=== PATIENT | female | born 1940 | race Caucasian/White ===

== ENCOUNTER 2024-04-29 08:10 | Day surgery (SDC) | payer MEDICARE, SELFPAY ==
--- NOTE | 2024-04-13 09:50 | HPS.HSE ---
Family Physician
-
Family Physician: NO INTERVIEW UNKNOWN
Chief Complaint
-
Paroxysmal atrial fibrillation.
History of Present Illness
The patient is an 83 year old female presenting today for paroxysmal atrial fibrillation. The patient reports daily palpitations secondary to this diagnosis. Her palpitations can last up to 2-3 hours a day. She previously underwent
pulmonary vein isolation in January 2018 and September 2019 for her arrhythmia. Her most recent event monitor demonstrated a 6% atrial fibrillation burden. She is on current pharmacological therapy with Metoprolol Succinate. She reports compliance with
Eliquis for oral anticoagulation. She notes that her palpitations greatly interfere with her activities of daily living and are overall impacting her quality of life. She is interested in pursuing with repeat pulmonary vein isolation for further
arrhythmia management. She denies any current complaints such as chest pain, shortness of breath, nausea, vomiting, diarrhea, lightheadedness, dizziness, cough, sore throat, or fever.
Medical History
Past Medical History
Past Medical History: Reports Other
Additional Past Medical History:
1. Paroxysmal atrial fibrillation, status post pulmonary vein isolation 01/2018 and 09/2019; pharmacological therapy with Metoprolol Succinate, oral anticoagulation with Eliquis.
2. Hypertension.
3. Hyperlipidemia.
4. Atrial tachycardia.
5. First degree AV block.
6. Mild mitral regurgitation.
7. Mild tricuspid regurgitation.
8. GERD.
9. Hiatal hernia.
10. Gastric and colon polyps.
11. Diverticulosis.
12. Arthritis.
13. Left thyroid nodule on pre-operative chest CT.
14. Squamous cell carcinoma, forehead, status post Mohs.
15. Chronic anemia.
16. Shingles.
17. Hypokalemia, on oral supplementation.
18. Mild hyponatremia.
19. Hearing impairment bilaterally.
Past Surgical History: Reports Other
Additional Past Surgical History:
1. Pulmonary vein isolation x2.
2. Bilateral carpal tunnel release.
3. Bilateral trigger thumb release.
4. Appendectomy.
5. Breast lipoma excision.
6. Bilateral foot surgery with hardware.
7. Tonsillectomy.
8. Thyroid biopsy.
9. Mohs.
10. Colonoscopy x4.
11. Endoscopy x3.
Social History
Tobacco: Non-smoker
Alcohol: Other (She reports to consuming a 'couple' ounces of wine 1-2 times per week. )
Personal:
Living: Other (She lives with her in a 2 story home. She recently found out her has Alzheimer's disease (due to initial aphasia). )
Family History
Family History: Not pertinent
Allergies / Home Medications
Allergy/Medication List:
Home medications:
1. Eliquis 2.5 mg p.o. twice a day.
2. Chlorthalidone 25 mg p.o. daily.
3. Cholecalciferol 50 mcg p.o. daily.
4. Nexium 40 mg p.o. at bedtime.
5. Losartan 100 mg p.o. daily.
6. Metoprolol Succinate 50 mg p.o. twice a day.
7. Potassium chloride 20 meq p.o. daily.
8. Rosuvastatin 10 mg p.o. daily.
Allergies: Epinephrine. Opioids. Adhesive tape.
Review of Systems
-
A 12 point ROS was completed and negative except as noted: Yes
Physical Exam
Vital Signs
Blood pressure 165/59. Heart rate 64. Respirations 18. Pulse ox 98% on room air.
Height 5 feet, 4 inches. Weight 60.6 kg. BMI 22.9.
Physical Exam
General: Well Developed, Well Nourished and No Apparent Distress
HEENT: NormoCephalic, Moist mucous membranes, Atraumatic and PERRLA
Respiratory: Clear
Cardiac: Regular Rhythm
GI: Soft, Non Tender and Non Distended
Musculoskeletal: Normal Gait & Station
Skin: Warm and Dry
Neuro: AO x 3 and Nonfocal/grossly intact
Laboratory Results
-
DIAGNOSTIC STUDIES as of 04/13/2024: White blood cell count 6.5. Hemoglobin 11.4. Platelet count 193,000. PT 14.4. INR 1.07. Sodium 134. Potassium 4.1. BUN 17. Creatinine 0.7. Glucose 83. Calcium 10.1. Magnesium 1.9. AST 34. ALT 26. Albumin 4.7.
Type and screen O positive.
EKG 04/13/2024: Sinus rhythm with Wenkebach. Left axis deviation.
Chest CT 04/13/2024: Short segment common vestibule for the left superior and inferior pulmonary veins, fairly commonly seen and considered normal variant. No evidence for left atrial thrombus. 1.0 cm hypoattenuating left thyroid lobe nodule, not
definitely seen previously. Consider workup with dedicated thyroid ultrasound if not previously performed.
Echocardiogram 03/19/2024: Ejection fraction is 55 to 60% with grade 2 diastolic dysfunction. Mild mitral regurgitation. Mild tricuspid regurgitation with mildly elevated right ventricular systolic pressure, estimated 41 mmHg.
Impression/Plan
-
IMPRESSION/PLAN:
1. Paroxysmal atrial fibrillation: The patient is in need of pulmonary vein isolation with Dr. Sathish Hollins on 04/29/2024. The benefits and risks of the procedure have been explained to the patient. The patient understands these risks and wishes to
proceed. She will not be required to undergo a pre-preprocedural transesophageal echocardiogram as she does report compliance with her home oral anticoagulation. She is aware to continue her Eliquis uninterrupted prior to her procedure. She will
take no medications the morning of her ablation.
2. Left thyroid nodule on pre-operative chest CT: The patient's thyroid nodule was discussed through phone call 04/15/2024. Per the patient, this finding is not new and she has had it biopsied previously. Fortunately, her previous biopsy was
negative for malignancy.
[2024-04-13 11:07] VITALS: BMI 22.9
[2024-04-13 11:37] LABS: % Basophils 0.8 % (0-2); % Eosinophils 1.4 % (0-6); % Immature Granulocytes 0.2 % (0-0.5); % Lymphocytes 21.4 % (20.5-51.1); % Monocytes 10.5 % (1.7-9.3); % Neutrophils 65.7 % (42.2-75.2); Absolute Basophils 0.1 10^3/uL (0-0.2); Absolute Eosinophils 0.1 10^3/uL (0-0.7); Absolute Lymphocytes 1.4 10^3/uL (1.2-3.4); Absolute Monocytes 0.7 10^3/uL (0.1-0.6); Absolute Neutrophils 4.3 10^3/uL (1.4-6.5); Hematocrit 33.9 % (37.0-47.0); Hemoglobin 11.4 g/dL (12.0-16.0); Mean Corp Hgb Conc. 33.6 g/dL (33.0-37.0); Mean Corpuscular Hgb 29.5 pg (27.0-31.0); Mean Corpuscular Volume 87.6 fL (81.0-99.0); Mean Platelet Volume 10.4 fL (7.4-10.4); Nucleated Red Blood Cells % 0 %; Platelet Count 193 10^3/uL (130-400); Red Blood Cell Count 3.87 10^6/uL (4.20-5.40); Red Cell Dist. Width 12.8 % (11.5-14.5); White Blood Cell Count 6.5 10^3/uL (4.8-10.8)
[2024-04-13 11:48] LABS: INR 1.07; PT 14.4 Sec (11.4-14.6)
[2024-04-13 11:51] LABS: ALT (SGPT) 26 U/L (0-35); AST (SGOT) 34 U/L (14-36); Albumin 4.7 g/dl (3.5-5.0); Alkaline Phosphatase 54 U/L (38-126); Blood Urea Nitrogen 17 mg/dl (7-17); Calcium 10.1 mg/dl (8.4-10.2); Carbon Dioxide 35 mmol/L (22-30); Chloride 93 mmol/L (98-107); Estimated Creatinine Clearance 54 ml/min; Glucose 83 mg/dl (70-99); Magnesium 1.9 mg/dl (1.6-2.3); Potassium 4.1 mmol/L (3.5-5.1); Sodium 134 mmol/L (135-145); Total Bilirubin 0.6 mg/dl (0.2-1.3); Total Protein 7.1 g/dl (6.3-8.2); eGFR > 60.00
[2024-04-29] VITALS (12 sets, daily range): BP systolic 106–168; BP diastolic 55–98; BMI 22.3
[2024-04-29 11:15] LABS: ACT-LR - POC 282 Seconds (116-155)
[2024-04-29 11:36] LABS: ACT-LR - POC 339 Seconds (116-155)
--- NOTE | 2024-04-29 11:58 | ITS.CL.ABL ---
Store Director - Ablation
Ablation
Procedure Report:
ELECTROPHYSIOLOGY ABLATION STUDY
DATE:: April 29, 2024�����������������������������REFERRING: Dr. Russ henderson
INDICATION: Paroxysmal supraventricular tachycardia in the form of atrial fibrillation.��Prior pulmonary vein isolation procedure in 2018 with me at [facility] with a 28 mm cryoballoon status post redo ablation with Dr. Ness at [facility] in
2020 with posterior wall isolation and targeting of coronary sinus atrial tachycardia. Presents with recurrent atrial fibrillation which is paroxysmal and low burden
HISTORY: See H and P.��As above
ANTIARRHYTHMIC DRUG: Discussed class III antiarrhythmic and the patient opted for repeat procedure
PRE-PROCEDURE ELLIOT: No atrial thrombus on intracardiac ultrasound
PRESENTING RHYTHM: As above sinus bradycardia with APD's
'TIME-OUT':��called and confirmed.
SEDATION/ANESTHESIA:��provided via the anesthesia department using general anesthesia (LMA).
INTRAVENOUS/ARTERIAL ACCESS:
Right femoral venous - 8Fr
Left femoral venous - 8 Fr, 6 Fr
Ultrasound guidance for bilateral femoral vein access was utilized by me to obtain access with demonstration of normal anatomy
CHADS-VASC Score:
HAS-Bled Score
PROCEDURE:
1.��A decapolar CS catheter was placed within the CS for mapping and pacing.��This was also used as the reference catheter for the 3-D map.
2. The intracardiac ultrasound catheter was positioned in the RA to identify the FO for targeting of transseptal puncture, assist��in identification of the pulmonary vein ostia, monitoring pre and post ablation pulmonary vein flow velocities,
monitoring for 'bubble' formation during RF application as a sign of thermal injury,��and to monitor for pericardial effusion during mapping and ablation procedure.���Left atrial size, LV ejection fraction, and pulmonary vein flows were monitored
pre and post ablation procedure. The other valves were inspected and found to be free of significant regurgitation or stenosis. There was a small posterior effusion behind the left atrium and left ventricle at baseline which was unchanged post
procedure. Serial imaging was performed to make sure this was stable.
3.��Transseptal puncture was extremely difficult and limited by 2 prior procedures and extensive calcification of the interatrial septum. We first elected a low�mid and posterior stick which could accommodate the Brockenbrough needle into the left
atrium and the dilator but the Agilis sheath could not pass into the left atrium despite utilizing this equipment plus a needle wire and ProTrac wire. A second attempt was made at a thin portion of the fossa just below the anterior limbus higher
and more anterior utilizing the Brockenbrough needle and electrocautery was utilized to cross the septum and to allow the sheath to anterior the left atrium over the dilator. A ProTrac wire was also utilized to aid in crossing into the left atrium.
Half of the calculated heparin bolus was administered prior to the first transeptal puncture.��Transseptal puncture was performed to diagnose RA and LA pressure so that safety of LA mapping and ablation could be further assessed, and to access the
left atrium and pulmonary veins for mapping and ablation.��This entailed advancing an 8 Fr SL-1 sheath with dilator into the superior vena cava and withdrawing both (monitoring intracardiac ultrasound, fluoroscopy and tip pressure) with the tip
oriented toward the atrial septum.��The fossa ovalis was engaged (indicated by sudden displacement of the sheath tip as well as tenting of the fossa seen on intracardiac ultrasound).��Left atrial access required a pass with the Brockenbrough needle
extended.��Left atrial catheter position was confirmed by pressure monitoring (RA mean pressure 8 mm Hg and LA mean pressure 14 mm Hg), LA saturation (99%),��as well as fluoroscopy.��The sheath was advanced over the dilator and positioned in the
left atrium.���The remainder of the calculated heparin bolus was administered and heparin was
infused to maintain ACT at 300 -350 seconds throughout the case.
4.��RA pacing was performed via the proximal decapolar poles and LA pacing was performed via the distal decapolr poles.
5. A quadrapolar catheter was first positioned at the His position for His Bundle recording which was tagged via the 3-D [employer] sytem, and then passed to the RVA for RV pacing and recording.
6. The ablation�mapping catheter was placed in each of the LIPV, LSPV, RSPV and the RIPV.��There was a large left common ostium which was connected on the inferior posterior region, roof, and ligament of Juan region in the low anterior aspect.
The right pulmonary veins were isolated at baseline. There was some voltage on the septal aspect of the right superior pulmonary vein which was addressed with ablation. The posterior wall had patchy electroanatomic voltage�signal particularly on
the inferior portion of the posterior wall up to the midportion of the posterior wall. After electroanatomic mapping demonstrated these areas we targeted these areas with the PFA catheter as below.
7.� Next a 3D map was created utilizing the [employer] mapping system. We reviewed the patient's prior CT scan. Pulse-wave Doppler was utilized for pulmonary vein flows demonstrating a 0.8 m/s flow for the large left common ostium and 0.6 to 0.8 m/s for
the right veins.
8. Under ultrasound guidance and mapping guidance lesions were given with pulsed field ablation and the anterior ligament of Juan region from roof down to floor through the base of the left common os and into the posterior wall targeting areas
of connection. This rendered the vein isolated. We then performed ablation of substrate from the floor of the left atrium up through the roof over towards the right's leading to electrical silence and exit block of the left atrial posterior wall.
We utilized a loop in the catheter to reach the interatrial septum and additional substrate was modified on the interatrial septum without a change in the patient's NE interval. Baseline parable was 260 ms.
RF was delivered using a temperature controlled system with an 8mm Blazer and power set to 50-60 orosco and temperature to 55 degrees.��RF was delivered for a minimum of 10 seconds to a maximum of 20 seconds at each targeted site, or until the local
map Eg was diminished to <0.5mV amplitude.
9. Despite the first-degree AV delay at baseline AV Wenke block was noted to be at 420 ms. Atrial singles from the right atrium 8 800�4 50 down to refractoriness demonstrated no inducibility of tach arrhythmia. Sequential burst pacing from the
right atrium down to refractoriness did not induce any other tachyarrhythmias.
PULMONARY VEIN FLOW VELOCITIES:
�������������������������LSPV���������������LIPV���������������RSPV���������������RIPV
Pre-Ablation������0.8 m/s��������������0.8 m/s�������������0.8 m/s��������������0.8 m/s looking at the CT scan preablation there was some evidence for stenosis at the the right superior and right inferior pulmonary veins circumferentially. There
was an abrupt transition from the large left common ostium to the narrow area of the posterior wall between the left and right veins.
Post-Ablation���unchanged
TOTAL FLOURO TIME: 20.9 minutes 112 mGy
TOTAL RF DURATION: 0 minutes
REVERSAL OF HEPARIN: 40 mg of protamine, slow IV administration
COMPLICATIONS:
None
Intracardiac US shows no pericardial effusion post ablation.
SUMMARY:��
Complex left atrial mapping and ablation.
Reisolation of the left common ostium as above. Extrapulmonary vein substrate modification with isolation of the left atrial floor, posterior wall, and roof as well as inner atrial substrate modification. Extremely difficult transseptal utilizing
different equipment modalities to access the left atrium with the ablation sheath.
RECOMMENDATIONS:
1. Ambulate in 4 hours
2. Resume anticoagulation
3.� Consider same-day discharge
4.��With any clinical recurrence would introduce a class III antiarrhythmic drug preferably dofetilide
Copy to: Dr. Russ Henderson
--- NOTE | 2024-04-29 15:44 | W.PN.UPDATE ---
Update Note
Progress Note Update
83 yo WF s/p PVI (same day). She denies cp, sob, george diet, voiding, b/l groins c/d/i, EKG SR 1deg AVB. She will resume Eliquis tonight at home. She will continue metoprolol. Activity restrictions reviewed. She will f/u Arianne SENIOR WINDOWS ENGINEER in 2 weeks then
continue cardiac care with Dr. Henderson. She is for d/c home after 5pm if groins stable.
== END 2024-04-29 17:00 | disposition home or self-care (01) ==
LOC: CATH 08:10
PROVIDERS: ATTENDING PHYSICIAN Internal Medicine Cardiovascular Disease; FAMILY PHYSICIAN Internal Medicine; OTHER PHYSICIAN Internal Medicine Cardiovascular Disease
DX: I48.0 Paroxysmal atrial fibrillation (principal); I47.19 Other supraventricular tachycardia; E78.5 Hyperlipidemia, unspecified; I10 Essential (primary) hypertension; K21.9 Gastro-esophageal reflux disease without esophagitis; M19.90 Unspecified osteoarthritis, unspecified site; Z79.01 Long term (current) use of anticoagulants; Z79.899 Other long term (current) drug therapy; Z86.0100 Personal history of colon polyps, unspecified; Z88.5 Allergy status to narcotic agent; Z90.49 Acquired absence of other specified parts of digestive tract; Z90.89 Acquired absence of other organs; R00.1 Bradycardia, unspecified; R00.2 Palpitations; I44.0 Atrioventricular block, first degree; I08.1 Rheumatic disorders of both mitral and tricuspid valves; K57.90 Diverticulosis of intestine, part unspecified, without perforation or abscess without bleeding; Z85.828 Personal history of other malignant neoplasm of skin; D64.9 Anemia, unspecified; P74.22 Hyponatremia of newborn; H91.8X3 Other specified hearing loss, bilateral
CPT/HCPCS: C1894; C1730; C1766; C1892; C1759; 36415; 75572; 76937; 80053; 83735; 85025; 85347; 85610; 86850; 86900; 86901; 93005; 93656; 93657; Q9967